=== PATIENT | female | born 1990 | race Caucasian/White ===

== ENCOUNTER → 2018-05-07 15:13 | Outpatient (CLI) | payer OTHER, SELFPAY ==
--- NOTE | 2018-05-07 15:16 | DI.RAD.S_ITS ---
PROCEDURE: XR FOOT RT MIN 3V INDICATIONS: Right medial foot pain TECHNIQUE: 3 views of the foot were acquired. COMPARISON: None. FINDINGS: Bones: No fractures or dislocations. No suspicious bony lesions. Soft tissues: No tibiotalar joint effusion. Achilles tendon appears normal. IMPRESSION: No fracture. No osseous lesion. If there are persistent symptoms or clinical suspicion for pathology, then repeat radiographs or advanced imaging (CT, MRI or bone scan) should be considered for further evaluation. Dictated by: Lorie Gonzalez MD, PhD on 05/07/2018 at 15:41 Approved by: Lorie Gonzalez MD, PhD on 05/07/2018 at 15:42
== END ==
PROVIDERS: PCP Obstetrics & Gynecology; Visit Provider Physician Assistant
DX: M79.671 Pain in right foot (principal)
CPT/HCPCS: 73630

== ENCOUNTER → 2018-07-22 13:29 | Outpatient (CLI) | payer OTHER, SELFPAY ==
[2018-07-22 14:02] LABS: Add Manual Diff / Slide Review NO; Basophils Percent Auto 0.2 % (0-2); Eosinophils Percent Auto 0.5 % (2-4); Hematocrit 42.2 % (36-46); Hemoglobin 14.5 g/dL (12.0-16.0); Lymphocytes Percent Auto 17.9 % (25-40); Mean Corpuscular HGB Conc 34.4 % (30-36); Mean Corpuscular Hemoglobin 31.6 PG (26-34); Mean Corpuscular Volume 91.8 fL (80-100); Monocytes Percent Auto 4.3 % (3-14); Neutrophils Absolute Auto 7100 /uL (1500-7000); Neutrophils Percent Auto 77.1 % (50-75); Platelet Count 248 X10^3/uL (150-400); Red Blood Cell Count 4.59 X10^6/uL (4.0-5.2); Red Cell Distribution Width 13.2 % (11.6-14.8); White Blood Cell Count 9.2 X10^3/uL (4.5-11.0)
[2018-07-22 14:06] LABS: Appearance Urine UA CLEAR; Bilirubin Urine UA NEGATIVE (NEGATIVE); Color Urine UA YELLOW; Glucose Urine UA NEGATIVE (Negative); Ketones Urine UA NEGATIVE (NEGATIVE); Leukocyte Esterase Urine UA NEGATIVE (NEGATIVE); Nitrite Urine UA NEGATIVE (Negative); Occult Blood Urine UA NEGATIVE (Negative); Protein Urine UA NEGATIVE (Negative); Specific Gravity Urine UA 1.025 (1.000-1.035); Urobilinogen Urine UA 0.2 E.U./dL (0.2)
[2018-07-22 15:18] LABS: Hepatitis B Surface Antigen NEGATIVE s/c (NEGATIVE); Rubella Antibody IgG 24.9 IU/mL (>15)
[2018-07-22 15:36] LABS: HIV 1 and 2 Antibody NEGATIVE (NEGATIVE); Hep C Virus Ab w/Reflex Quant NEGATIVE s/c (NEGATIVE)
[2018-07-24 10:24] LABS: RPR Screen Nonreactive (Nonreactive)
[2018-07-25 13:10] LABS: HSV 2 IGG AB < 0.90 index (< 0.90); HSV1IGG < 0.90 index (< 0.90)
== END ==
PROVIDERS: PCP Obstetrics & Gynecology; Visit Provider Obstetrics & Gynecology
DX: Z34.81 Encounter for supervision of other normal pregnancy, first trimester (principal)
CPT/HCPCS: 36415; 80055; 81003; 86695; 86696; 86703; 86787; 86803; 86850; 86900; 86901; 87086

== ENCOUNTER → 2018-09-01 10:43 | Outpatient (CLI) | payer OTHER, SELFPAY ==
[2018-09-08 08:43] LABS: Calc Gestational Age 18.7; Cigarette Smoker N; Donated Egg NOT GIVEN; Donor Egg Age NOT GIVEN; Estriol, Free 1.96 ng/mL; Inhibin A, Dimeric 179 pg/mL; Maternal Weight 197 lbs; Number of Fetuses NOT GIVEN; Previous Pregnancy Down Syndro NOT GIVEN; hCG, MoM 0.86; hCG, Serum 16.2 IU/mL
== END ==
PROVIDERS: PCP Obstetrics & Gynecology; Visit Provider Obstetrics & Gynecology
DX: Z3A.18 18 weeks gestation of pregnancy (principal)
CPT/HCPCS: 36415; 82105; 82677; 84702; 86336

== ENCOUNTER → 2018-09-15 15:51 | Outpatient (CLI) | payer OTHER, SELFPAY ==
--- NOTE | 2018-09-15 15:53 | DI.US.S_ITS ---
PROCEDURE: US OB >= 14 WEEKS FETUS INDICATIONS: ANATOMY SURVEY OUTSIDE/PRIOR DATING DATA: Last menstrual period (LMP): Not available. LMP-based estimated date of delivery (DELON): Not available. First dating scan (date and location): 06/29/18, by Dr. Rodgers. Estimated date of delivery (DELON) from first dating scan: 01/28/19, by Dr. Rodgers. TECHNIQUE: Real-time scanning was performed of the fetus, with image documentation and biometric measurements. Endovaginal scanning: Not needed for this study COMPARISON: [facility], , OB >= 14 WEEKS FETUS, 08/02/2018, 8:07. FINDINGS: General: A single living intrauterine gestation is present. Presentation: Variable at this time. Placenta: Placental position is posterior, without previa. Amniotic fluid index: 8.6 cm, normal range is 5-24 cm. heart rate: 147 beats per minute. Maternal cervical canal: 4.0 cm long. Normal lower limit is 2.5 cm. biometrics: Biparietal diameter: 4.8 cm, 20 weeks 3 days Head circumference: 18.5 cm, 20 weeks 6 days Abdominal circumference: 17.6 cm, 21 weeks 5 days Femur length: 3.5 cm, 20 weeks 6 days Estimated gestational age from initial scan: 20 weeks 5 days Composite gestational age from present scan: 20 weeks 6 days Estimated weight and percentile: 410 g, 74th percentile Measurement variability for biometric dating: +/- 7 days from 14 weeks to 15 weeks 6 days gestation, +/- 10 days from 16 weeks to 21 weeks 6 days gestation, +/- 2 weeks from 22 weeks to 27 weeks 6 days gestation, +/- 3 weeks for 28 weeks gestation or later. weight reference: 4500 g or EFW >90/95% is considered macrosomia or large for gestational age. EFW <10% is small for gestational age. EFW 5% or less is considered intra-uterine growth restriction. Anatomic survey: Neuro: Ventricles are non-dilated at less than 10 mm. Cisterna magna is normal at 3-11 mm. Cerebellum is normal in size and morphology. Nuchal skin fold: Normal at less than 6 mm between 14-21 weeks gestational age. Face: Nose and lips, facial profile are normal. Spine: No evidence for spina bifida. Heart: 4-chambered heart is present, with normal ventricular outflow tracts. Diaphragm: Diaphragm is intact. Stomach: Left-sided stomach is present. Kidneys: No hydronephrosis. Normal is less than 5 mm in 2nd trimester, less than 7 mm in 3rd trimester. Cord: 3-vessel cord has orthotopic insertion. Bladder: Normal in size. Extremities: All 4 extremities identified. IMPRESSION: Appropriate interval growth, no anomaly seen. The delivery date is projected to be centered on 01/28/19 based on the first OB ultrasound, by Dr. Rodgers Dictated by: Natan Bustillo M.D. on 09/16/2018 at 9:54 Approved by: Natan Bustillo M.D. on 09/16/2018 at 9:57
== END ==
PROVIDERS: PCP Obstetrics & Gynecology; Visit Provider Obstetrics & Gynecology
DX: Z34.82 Encounter for supervision of other normal pregnancy, second trimester (principal); Z3A.20 20 weeks gestation of pregnancy
CPT/HCPCS: 76811

== ENCOUNTER → 2018-11-01 15:58 | Outpatient (CLI) | payer OTHER, SELFPAY ==
[2018-11-01 18:45] LABS: Hematocrit 36.2 % (36-46); Hemoglobin 12.2 g/dL (12.0-16.0)
[2018-11-01 19:33] LABS: GTT (PREG) 1 Hour PP 50gm Dose 67 mg/dL (76-139)
== END ==
PROVIDERS: PCP Obstetrics & Gynecology; Visit Provider Obstetrics & Gynecology
DX: Z34.82 Encounter for supervision of other normal pregnancy, second trimester (principal)
CPT/HCPCS: 36415; 82950; 85014; 85018

== ENCOUNTER 2018-11-30 15:10 | Outpatient (CLI) | payer OTHER, SELFPAY ==
--- NOTE | 2018-11-30 15:49 | PM.OBTRLD ---
Visit Information Visit Information Date of evaluation: 11/30/18 Primary OB Provider: Sue Rodgers Reason for Evaluation: Yes pre-term labor [facility] Medical History (Updated 11/30/18 @ 15:54 by Kasandra Joy MD) Acne (Chronic 1999) Migraines (Chronic 1999) Chicken pox (Resolved 1996) HPV (human papilloma virus) infection (Resolved 2013) Surgical History (Updated 11/22/18 @ 10:01 by Sue Rodgers MD) Anesthesia (Resolved) History of third molar tooth extraction (Resolved 11/2013) History of tonsillectomy (Resolved) Status post delivery (Resolved 10/16/15) Family History (Updated 06/28/18 @ 12:03 by Jailene Conklin) Father Age: 56 Diabetes mellitus Heart disease Hypertension High cholesterol Grandfather Heart disease Hypertension High cholesterol Grandmother Cancer Grandfather No problems noted. Grandmother COPD (chronic obstructive pulmonary disease) Mother No problems noted. Social History Smoking Status: Never smoker Family History (Updated 06/28/18 @ 12:03 by Jailene Conklin) Father Age: 56 Diabetes mellitus Heart disease Hypertension High cholesterol Grandfather Heart disease Hypertension High cholesterol Grandmother Cancer Grandfather No problems noted. Grandmother COPD (chronic obstructive pulmonary disease) Mother No problems noted. Social History Smoking Status: Never smoker Evaluation Evaluation Baseline heart rate: 125 Variability: Moderate (11-25) monitor accelerations: Present monitor decelerations: Absent Contraction Frequency (minutes): 0 Uterine Contraction Intensity: Mild Category of Tracing: I Diagnosis, Plan/Disposition Final Diagnosis (1) Premature uterine contractions: Current Visit: Yes Status: Acute (2) 31 weeks gestation of : Current Visit: Yes Status: Acute Plan/Disposition Plan: Patient was concerned she might be having contractions but there were no contractions on the monitor and nothing that was palpable. Patient is reassured she is to push fluids and rest. Call if symptoms worsen. OB Disposition: home
== END 2018-11-30 15:54 | disposition home or self-care (01) ==
LOC: LABOR 17:55 → OB 12-02 10:43
PROVIDERS: PCP Obstetrics & Gynecology; Visit Provider Specialist
DX: O47.9 False labor, unspecified (principal); Z3A.31 31 weeks gestation of pregnancy
CPT/HCPCS: 59025; G0378; G0379

== ENCOUNTER → 2018-12-27 12:17 | Outpatient (CLI) | payer OTHER, SELFPAY ==
[2018-12-28 17:48] LABS: Strep Grp B PCR POS for Grp B Strep
== END ==
PROVIDERS: PCP Obstetrics & Gynecology; Visit Provider Obstetrics & Gynecology
DX: Z34.83 Encounter for supervision of other normal pregnancy, third trimester (principal)
CPT/HCPCS: 87653

== ENCOUNTER 2019-01-19 07:00 | Inpatient (IN) | payer OTHER, SELFPAY ==
--- NOTE | 2019-01-19 07:57 | SUR.OPER ---
Supine on Padded OR bed, head on pillow, safety belt at thigh, arms secured on padded arm boards at <90 degrees abduction. Bump under right buttock. Legs uncrossed with pillow under knees, gel pad to heels, tape over blanket to lower legs.
[2019-01-19] MEDS: LACTATED RINGERS 1,000 ML 1000 ML IV (08:20)
[2019-01-19] MEDS: CITRIC ACID/SODIUM CITRATE 15 ML SOLUTION 30 ML PO (08:49)
[2019-01-19 08:50] LABS: Add Manual Diff / Slide Review NO; Basophils Absolute Auto 0 /uL (0-100); Basophils Percent Auto 0.4 % (0-2); Eosinophils Absolute Auto 100 /uL (0-450); Hematocrit 32.3 % (36-46); Hemoglobin 10.5 g/dL (12.0-16.0); Lymphocytes Absolute Auto 2100 /uL (1100-4500); Lymphocytes Percent Auto 18.8 % (25-40); Mean Corpuscular HGB Conc 32.4 % (30-36); Mean Corpuscular Hemoglobin 28.2 PG (26-34); Mean Corpuscular Volume 86.8 fL (80-100); Monocytes Absolute Auto 700 /uL (0-900); Monocytes Percent Auto 6.7 % (3-14); Neutrophils Absolute Auto 8200 /uL (1500-7000); Neutrophils Percent Auto 73.1 % (50-75); Platelet Count 202 X10^3/uL (150-400); Red Blood Cell Count 3.72 X10^6/uL (4.0-5.2); Red Cell Distribution Width 14.4 % (11.6-14.8); White Blood Cell Count 11.1 X10^3/uL (4.5-11.0)
[2019-01-19] MEDS: CEFAZOLIN 2 GM/100 ML FROZ.PIGGY IV (09:19)
[2019-01-19] MEDS: LACTATED RINGERS 1,000 ML 100 ML IV (09:19)
--- NOTE | 2019-01-19 09:24 | PM.PREOP ---
Pre-operative Note Interval Note History & Physical reviewed/Exam performed by Physician: Yes Changes to H&P: No
--- NOTE | 2019-01-19 10:11 | SUR.OPER ---
VIABLE MALE BORN AT 0959..APGARS 8 AND 9 FHT AFTER SPINAL 146
--- NOTE | 2019-01-19 10:12 | SUR.OPER ---
CORD BLOOD AND PLACENTA TO LABOR DEPT
--- NOTE | 2019-01-19 10:28 | SUR.OPER ---
CONSENTS SIGNED FOR SURGERY AND ANESTHESIA, H&P CURRENT
[2019-01-19 10:41] VITALS: BP 110/64; PULSE 74; RESP 13; TEMP 36.4; O2SAT 97
[2019-01-19 10:46] VITALS: BP 116/52; PULSE 80; RESP 9; O2SAT 96
[2019-01-19 10:51] VITALS: BP 111/66; PULSE 68; RESP 15; O2SAT 96
[2019-01-19 10:56] VITALS: BP 107/70; PULSE 75; RESP 18; O2SAT 95
--- NOTE | 2019-01-19 11:17 | PM.GYNOP.1 ---
Operative Date/Time/Diagnoses Date of procedure: 01/19/19 Time of procedure: 11:17 Pre-op diagnosis: 39 weeks gestation Previous section Post-op diagnosis: same Procedure: Procedures Operation Date: 01/19/19 09:00 Actual Procedures Side Surgeon p Section-Repeat Sue Rodgers MD Indications: Thirty-nine weeks gestation Previous section Surgeon: Sue Rodgers Landscape Artist: Tommy Pal Anesthesia Type: Spinal (With Duramorph) Operative Notes Findings: Live male in the direct OA presentation Normal uterus, tubes, and ovaries Closure Type: primary Specimen(s): other (Placenta, cord blood) Applied: catheter Estimated blood loss (mL): 500 Blood products transfused: none Procedure in detail: The patient was taken to the operating room where she was placed in the seated position. Spinal anesthesia with Duramorph was administered. The patient was then placed in the dorsal supine position with a leftward tilt. She was prepped and draped in the usual sterile fashion. A timeout was performed. After spinal analgesia was found to be adequate, a Pfannenstiel skin incision was made through the previous incision and carried through to the underlying layer fascia. The fascia was nicked in the midline, and the incision extended bilaterally with the More scissors. The superior aspect of the fascial incision was grasped with a [place] clamps, elevated, and the underlying rectus muscles dissected off sharply and bluntly. Attention was then turned to the inferior aspect of this incision which in a similar fashion was grasped with a [place]heer clamps, elevated, and the underlying rectus muscles dissected off sharply and bluntly. The rectus muscles were in the midline. The peritoneum was identified, grasped between 2 hemostats, and entered sharply with the Metzenbaum scissors. This incision was extended superiorly and inferiorly with good visualization of the bladder. The bladder blade was inserted. The vesicouterine peritoneum was identified, grasped with the pickup, and entered sharply with the Metzenbaum scissors. This incision was extended bilaterally, and the bladder flap was created digitally. The bladder blade was reinserted. The lower uterine segment was incised in a transverse fashion with the scalpel. Upon entering the amniotic sac there was moderate amount of clear amniotic fluid. The infant's head was delivered with vacuum assistance. The nose and mouth were suctioned with bulb suction. The remainder of the body delivered without difficulty. The cord was double clamped and cut. The infant was handed off to waiting RN and RT. The placenta was delivered manually. The uterus was cleared of all clots and debris. The uterine incision was repaired with #1 chromic in a running interlocking fashion, and a second layer the same suture was used for an imbricating layer. Hemostasis was achieved. The tubes and ovaries were examined and were found to be normal. The gutters were cleared of all clots and debris. The bladder flap was reapproximated using 2-0 Vicryl in a running fashion. The parietal peritoneum was closed using 2-0 Vicryl in a running fashion. The fascia was reapproximated using 0 Vicryl in a running fashion. The subcutaneous layer was copiously irrigated with warm normal saline. 5 simple interrupted sutures of 3-0 Vicryl were placed to reapproximate the subcutaneous layer. The skin was closed with 4-0 undyed Vicryl in a subcuticular fashion. Steri-Strips were placed. An Aquacell dressing was placed. The uterus was expressed of a small amount of old blood. Sponge, lap, and instrument counts were correct x-2. The patient tolerated the procedure well, and was taken to PACU in stable condition. Complications: none Post-operative Condition: stable Disposition: PACU Plan for aftercare: To the center after recovery
--- NOTE | 2019-01-19 11:21 | P.OP_ITS ---
Operative Date/Time/Diagnoses Date of procedure: 01/19/19 Time of procedure: 11:17 Pre-op diagnosis: 39 weeks gestation Previous section Post-op diagnosis: same Procedure: Procedures Operation Date: 01/19/19 09:00 Actual Procedures Side Surgeon p Section-Repeat Sue Rodgers MD Indications: Thirty-nine weeks gestation Previous section Surgeon: Sue Rodgers Merchandise Worker: Tommy Pal Anesthesia Type: Spinal (With Duramorph) Operative Notes Findings: Live male in the direct OA presentation Normal uterus, tubes, and ovaries Closure Type: primary Specimen(s): other (Placenta, cord blood) Applied: catheter Estimated blood loss (mL): 500 Blood products transfused: none Procedure in detail: The patient was taken to the operating room where she was placed in the seated position. Spinal anesthesia with Duramorph was administered. The patient was then placed in the dorsal supine position with a leftward tilt. She was prepped and draped in the usual sterile fashion. A mile eout was performed. After spinal analgesia was found to be adequate, a Pfannenstiel skin incision was made through the previous incision and carried through to the underlying layer fascia. The fascia was nicked in the midline, and the incision extended bilaterally with the More scissors. The superior aspect of the fascial incision was grasped with a [place] clamps, elevated, and the underlying rectus muscles dissected off sharply and bluntly. Attention was then turned to the inferior aspect of this incision which in a similar fashion was grasped with a [place] clamps, elevated, and the underlying rectus muscles dissected off sharply and bluntly. The rectus muscles were in the midline. The peritoneum was identified, grasped between 2 hemostats, and entered sharply with the Metzenbaum scissors. This incision was extended superiorly and inferiorly with good visualization of the bladder. The bladder blade was inserted. The vesicouterine peritoneum was identified, grasped with the pickup, and entered sharply with the Metzenbaum scissors. This incision was extended bilaterally, and the bladder flap was created digitally. The bladder blade was reinserted. The lower uterine segment was incised in a transverse fashion with the scalpel. Upon entering the amniotic sac there was moderate amount of clear amniotic fluid. The 's head was delivered with vacuum assistance. The nose and mouth were suctioned with bulb suction. The remainder of the body delivered without difficulty. The cord was double clamped and cut. The was handed off to waiting RN and RT. The placenta was delivered manually. The uterus was cleared of all clots and debris. The uterine incision was repaired with #1 chromic in a running interlocking fashion, and a second layer the same suture was used for an imbricating layer. Hemostasis was achieved. The tubes and ovaries were examined and were found to be normal. The gutters were cleared of all clots and debris. The bladder flap was reapproximated using 2-0 Vicryl in a running fashion. The parietal peritoneum was closed using 2-0 Vicryl in a running fashion. The fascia was reapproximated using 0 Vicryl in a running fashion. The subcutaneous layer was copiously irrigated with warm normal saline. 5 simple interrupted sutures of 3-0 Vicryl were placed to reapproximate the subcutaneous layer. The skin was closed with 4-0 undyed Vicryl in a subcuticular fashion. Steri-Strips were placed. An Aquacell dressing was placed. The uterus was expressed of a small amount of old blood. Sponge, lap, and instrument counts were correct x-2. The patient tolerated the procedure well, and was taken to PACU in stable condition. Complications: none Post-operative Condition: stable Disposition: PACU Plan for aftercare: To the center after recovery
[2019-01-19] MEDS: OXYCODONE/ACETAMINOPHEN 5/325 TABLET 1 TAB PO ×3 (13:36→22:03)
[2019-01-19] MEDS: KETOROLAC 30 MG/ML VIAL IV ×2 (17:07→23:00)
[2019-01-20] MEDS: LACTATED RINGERS 1,000 ML 100 ML IV (00:05)
[2019-01-20] MEDS: OXYCODONE/ACETAMINOPHEN 5/325 TABLET 1 TAB PO ×2 (02:04→06:12)
[2019-01-20] MEDS: KETOROLAC 30 MG/ML VIAL IV (05:13)
[2019-01-20 06:59] LABS: Hematocrit 27.8 % (36-46); Hemoglobin 9.2 g/dL (12.0-16.0)
[2019-01-20] MEDS: PRENATAL VIT,CALC/IRON/FOLIC 1 TABLET 1 TAB PO (09:07)
[2019-01-20] MEDS: DOCUSATE 250 MG CAPSULE PO (09:07)
[2019-01-20] MEDS: OXYCODONE/ACETAMINOPHEN 5/325 TABLET 2 TAB PO ×2 (10:29→15:41)
[2019-01-20] MEDS: IBUPROFEN 600 MG TABLET PO (11:26)
--- NOTE | 2019-01-20 13:17 | P.DS_ITS ---
Discharge Providers Date of admission: 01/19/19 07:00 Discharge Date: 01/20/19 Primary care physician: Demetra Church DO Consults: 01/19/19 13:30 Consult to Reporting Analyst Routine Comment: Discharge provider: Sue Rodgers MD Summary Date Patient Seen: 01/20/19 Time Patient Seen: 11:30 Procedures: Repeat low-transverse section Spinal anesthesia Hospital Course: Patient is a 28-year-old 2 para 2 postop day # 1 status post repeat low- transverse section Patient was admitted on 01/19/2019 for a scheduled repeat low-transverse section She underwent this procedure with spinal anesthesia without complication. Her postoperative course was unremarkable. She was able to void without the catheter on postop day # 1. She is tolerating a diet. She is ambulating. No nausea or vomiting. Peripartum Data Delivery Method: Section Laceration description: None Episiotomy description: None Procedures: Repeat low-transverse section Spinal anesthesia complications: none Status at Discharge Cognitive/behavioral status at discharge: oriented Functional status at discharge: independent ambulation Overall status at discharge: patient is progressing back to baseline Time Spent with Patient Total time spent providing and/or coordinating discharge services: Less than 30 minutes Objective Labs Result Diagrams: 01/20/19 06:47 Labs: Laboratory Results - last 24 hr 01/20/19 06:47 Hgb 9.2 L Hct 27.8 L Exam Vital Signs (past 8 hours): Oxygen Delivery Method Room Air Narrative Exam Narrative: Generally: Patient is sitting up in bed, no acute distress Lungs: Clear to auscultation bilaterally Cardiovascular: Regular rate and rhythm Abdomen: Soft, good bowel sounds Fundus: Firm at U -2 Extremities: Negative Homans, no edema Discharge Plan Discharge Plan Patient Disposition: Home Discharge comment: Call with fever, chills, redness or drainage around the incision or bleeding vaginally more than a pad in an hour Discharge Med Rec/Prescriptions Prescriptions: New oxycodone-acetaminophen [Percocet] 5-325 mg tablet 1 tab PO Q4-6H PRN (Reason: pain) Qty: 30 RF: 0 Follow up/Referrals: Sue Rodgers MD [Physician] - 1 Week Provider Discharge Instructions Diet: Regular Activity: No heavy lifting Skin/Wound/Dressing Care Report to your healthcare provider any signs of infection, such as:: chills, fever, increased pain, unusual drainage and unusual redness Dressing: Do not remove Visit Report/Discharge Packet Instructions: DI for Discharge Data Primary Care Provider: Demetra Church Attending Provider: Sue Rodgers Admit Date/Time: 01/19/19 07:00
[2019-01-20 15:50] VITALS: BP 122/67; PULSE 90; RESP 17; TEMP 37.1
== END 2019-01-20 18:00 | disposition home or self-care (01) | DRG 788 ==
PROVIDERS: Admitting Provider Obstetrics & Gynecology; PCP Family Medicine; Visit Provider Obstetrics & Gynecology
PROC: 10D00Z1 Extraction of Products of Conception, Low, Open Approach (ICD-10-PCS; CPT 59514; principal; 2019-01-19 09:00)
DX: O34.219 Maternal care for unspecified type scar from previous cesarean delivery (principal); Z3A.39 39 weeks gestation of pregnancy; Z37.0 Single live birth
CPT/HCPCS: 36415; 59050; 59510; 59514; 85014; 85018; 85025; 86850; 86900; 86901; J0690; J1885; J2405; J2590